=== PATIENT | male | born 1950 | race Hispanic/Latino ===

== ENCOUNTER 2018-01-19 05:21 | Emergency (ER) | payer OTHER ==
[~2018-01-19] VITALS: Ht 165.1 cm; Wt 95.0 kg
[2018-01-19 06:24] LABS: APPEARANCE CLOUDY ((CLEAR)); BILIRUBIN NEGATIVE; BLOOD LARGE; COLOR AMBER ((YELLOW)); GLUCOSE (STRIP) NEGATIVE; KETONES NEGATIVE; LEUKOCYTES NEGATIVE; NITRITE POSITIVE; PROTEIN (STRIP) 100; SPECIFIC GRAVITY 1.016 (1.000-1.030)
[2018-01-19 06:35] LABS: BACTERIA 1+ /HPF; EPITHELIAL CELLS NONE SEEN /HPF; MUCUS NONE SEEN /LPF; RED BLOOD CELLS TNTC /HPF (0-5); UCUL ADDED? YES; WHITE BLOOD CELLS TNTC /HPF (0-5)
[2018-01-19] MEDS ORDERED: CIPRO250 MG PO (07:16)
[2018-01-19 08:20] VITALS: BP 136/85
== END 2018-01-19 08:30 | disposition home or self-care (01) ==
LOC: EME 05:21 → EDBD 05:21 → EME 08:30
PROVIDERS: Physician Assistant
PROC: 0T9B70Z Drainage of Bladder with Drainage Device, Via Natural or Artificial Opening (ICD-10-PCS; principal; 2018-01-19)
DX: N40.1 Benign prostatic hyperplasia with lower urinary tract symptoms (principal); R33.8 Other retention of urine; E78.5 Hyperlipidemia, unspecified; I10 Essential (primary) hypertension
CPT/HCPCS: 81003; 87086 GA; 99281; 99285

== ENCOUNTER 2018-01-21 22:03 | Emergency (ER) | payer OTHER ==
[~2018-01-21] VITALS: Ht 167.6 cm; Wt 92.8 kg
[~2018-01-21 22:03] MED LIST: CIPRO250 MG PO
[2018-01-21 22:53] LABS: APPEARANCE CLEAR ((CLEAR)); BILIRUBIN NEGATIVE; BLOOD LARGE; COLOR AMBER ((YELLOW)); GLUCOSE (STRIP) NEGATIVE; KETONES NEGATIVE; LEUKOCYTES NEGATIVE; NITRITE POSITIVE; PROTEIN (STRIP) 30; SPECIFIC GRAVITY 1.017 (1.000-1.030)
[2018-01-21 22:57] LABS: HEMATOCRIT 48.5 % (38.0-50.0); HEMOGLOBIN 16.4 G/DL (12.5-16.6); MCH 30.1 PG (29.0-34.0); MCHC 33.8 G/DL (30.0-36.0); PLATELET COUNT 345 K/uL (156-360); RBC DIS.WIDTH-CV 14.2 % (11.8-14.6); RBC DIS.WIDTH-SD 45.8 % (39-53); RED BLOOD COUNT 5.45 M/uL (4.00-5.50); WHITE BLOOD COUNT 12.4 K/uL (4.1-10.2)
[2018-01-21 23:04] LABS: ALBUMIN 4.1 g/dL (3.2-4.8); CHLORIDE 106 mEq/L (99-109); SODIUM 141 mEq/L (136-147)
[2018-01-21 23:06] LABS: GLUCOSE 125 mg/dL (70-99); TOTAL PROTEIN 7.8 g/dL (6.4-8.3)
[2018-01-21 23:08] LABS: TOTAL BILIRUBIN 0.6 mg/dL (0.0-1.0)
[2018-01-21 23:10] LABS: ALKALINE PHOSPHATASE 135 IU/L (3-129); CREATININE 1.1 mg/dL (0.6-1.3); GFR ESTIMATE (CALCULATED) > 59 mL/min/ (58.99-99999)
[2018-01-21 23:11] LABS: UREA NITROGEN (BUN) 17 mg/dL (9-23)
[2018-01-21 23:12] LABS: AST (GOT) 25 IU/L (2-34)
[2018-01-21 23:13] LABS: ALT (GPT) 19 IU/L (3-49)
[2018-01-21 23:34] LABS: RED BLOOD CELLS TNTC /HPF (0-5); WHITE BLOOD CELLS 0-5 /HPF (0-5)
[2018-01-21 23:35] LABS: BACTERIA NONE SEEN /HPF; EPITHELIAL CELLS NONE SEEN /HPF; MUCUS 1+ /LPF; UCUL ADDED? YES
[2018-01-22] MEDS ORDERED: KEFLEX500 MG PO (02:50)
[2018-01-22] MEDS ORDERED: NORCO 5/3251 TABLET PO (02:50)
[2018-01-22] MEDS ORDERED: MIRALAX255 GM PO (02:54)
[2018-01-22 03:25] VITALS: BP 113/79
== END 2018-01-22 03:25 | disposition home or self-care (01) ==
LOC: EME 22:03
PROC: 0T2BX0Z Change Drainage Device in Bladder, External Approach (ICD-10-PCS; principal; 2018-01-21)
DX: N30.00 Acute cystitis without hematuria (principal); R33.8 Other retention of urine; Z98.890 Other specified postprocedural states; K59.00 Constipation, unspecified; K44.9 Diaphragmatic hernia without obstruction or gangrene; K42.9 Umbilical hernia without obstruction or gangrene; K57.90 Diverticulosis of intestine, part unspecified, without perforation or abscess without bleeding
CPT/HCPCS: 74177; 80053; 81003; 85027; 87086; 99281; 99285; J0696; J3010; J7030

== ENCOUNTER 2018-01-23 18:37 | Emergency (ER) | payer OTHER ==
[~2018-01-23] VITALS: Ht 167.6 cm; Wt 92.7 kg
[~2018-01-23 18:37] MED LIST changes: +KEFLEX500 MG PO; +MIRALAX255 GM PO; +NORCO 5/3251 TABLET PO
[2018-01-23 22:45] LABS: HEMATOCRIT 43.4 % (38.0-50.0); HEMOGLOBIN 14.9 G/DL (12.5-16.6); MCH 30.4 PG (29.0-34.0); MCHC 34.3 G/DL (30.0-36.0); MCV 88.6 FL (86-99); NRBC (%) 0.2 /100 WBC (0-0); PLATELET COUNT 311 K/uL (156-360); RBC DIS.WIDTH-CV 14.2 % (11.8-14.6); RBC DIS.WIDTH-SD 45.4 % (39-53); WHITE BLOOD COUNT 11.5 K/uL (4.1-10.2)
[2018-01-23 22:50] LABS: CHLORIDE 104 mEq/L (99-109); POTASSIUM 2.8 mEq/L (3.7-5.4); SODIUM 138 mEq/L (136-147)
[2018-01-23 22:52] LABS: GLUCOSE 113 mg/dL (70-99)
[2018-01-23 22:56] LABS: CREATININE 0.9 mg/dL (0.6-1.3); GFR ESTIMATE (CALCULATED) > 59 mL/min/ (58.99-99999)
[2018-01-23 22:57] LABS: UREA NITROGEN (BUN) 18 mg/dL (9-23)
[2018-01-23 23:31] LABS: APPEARANCE CLOUDY ((CLEAR)); COLOR BLOODY ((YELLOW))
[2018-01-23 23:33] LABS: SPECIFIC GRAVITY 1.025 (1.000-1.030)
[2018-01-23 23:35] LABS: LEUKOCYTES NEGATIVE; NITRITE NEGATIVE; PH, URINE 6 (5-8)
[2018-01-23 23:36] LABS: BILIRUBIN NEGATIVE; BLOOD LARGE; GLUCOSE (STRIP) NEGATIVE; KETONES 5; PROTEIN (STRIP) NEGATIVE; UROBILINOGEN 0.2 MG/DL (0.2-1.0)
[2018-01-24 00:56] LABS: RED BLOOD CELLS TNTC /HPF (0-5); UCUL ADDED? YES
[2018-01-24] MEDS ORDERED: MICONAZOLE NITR30 GM TP (01:31)
[2018-01-24] MEDS ORDERED: K-DUR20 MEQ PO (02:24)
[2018-01-24 03:54] VITALS: BP 109/73
== END 2018-01-24 03:25 | disposition home or self-care (01) ==
LOC: EME 18:37
PROVIDERS: Physician Assistant Medical
DX: N48.1 Balanitis (principal); R31.9 Hematuria, unspecified; I44.0 Atrioventricular block, first degree; I10 Essential (primary) hypertension; E78.5 Hyperlipidemia, unspecified; Z87.440 Personal history of urinary (tract) infections
CPT/HCPCS: 80048; 81003; 85027; 87086; 93005; 99281; 99284; J3480